=== PATIENT | female | born 1985 | race African-American/Black ===

== ENCOUNTER 2017-10-14 06:39 | Inpatient (IN) ==
[2017-10-14] MEDS ORDERED: MAG-AL + SIM ORAL LIQUID 30ml PO PRN (06:47)
[2017-10-14] MEDS ORDERED: CALCIUM CARBONATE Chewable 500mg TABLET PO PRN (06:47)
[2017-10-14] MEDS ORDERED: LR 1,000 ML IV PRN (06:47)
[2017-10-14] MEDS ORDERED: METHYLERGONOVINE 0.2 MG/ML INJECTION IM PRN (06:47)
[2017-10-14] MEDS ORDERED: LIDOCAINE 1% (10mg/ml) 2mL INJ PF SDV ID PRN (06:47)
[2017-10-14] MEDS ORDERED: ACETAMINOPHEN 500 MG TABLET PO PRN (06:47)
[2017-10-14] MEDS ORDERED: CARBOPROST 250 MCG/ML INJECTION IM PRN (06:47)
[2017-10-14] MEDS ORDERED: D5LR 1,000 ML IV PRN (06:47)
[2017-10-14] MEDS ORDERED: OXYTOCIN DRIP 30 UNIT/500 ML ML IV PRN (07:00)
[2017-10-14 07:09] VITALS: BMI 32.2
--- NOTE | 2017-10-14 08:10 | Anesthesia Preoperative Report ---
Anesthesia Epidural/Spinal Rec - Date and Time Date: 10/14/17 Procedure: Labor Epidural Plan: Epidural - Vital Signs Vital Signs: Temperature 97.7 F 10/14/17 07:12 Pulse Rate 78 10/14/17 07:12 Respiratory Rate 20 10/14/17 07:12 Blood Pressure 106/63 10/14/17 07:12 NPO since: 0000 /Para: P:1 Heart Rate: 130 - Medictaions & Allergies Inpatient Medications: Current Medications Acetaminophen (Tylenol) 500 - 1,000 mg PO Q4H PRN PRN Reason: Pain Al Hydroxide/Mg Hydroxide (Maalox Plus) 30 ml PO Q3H PRN PRN Reason: Indigestion Calcium Carbonate (Tums) 500 - 1,000 mg PO Q2H PRN PRN Reason: Indigestion Carboprost Tromethamine (Hemabate) 250 mcg IM O PRN PRN Reason: .Downtime Dextrose/Lactated Ringer's (Dextrose 5%-Lactated Ringers) 1,000 mls @ 125 mls/ hr IV .Q8H PRN PRN Reason: Labor Lactated Ringer's (Lactated Ringers) 1,000 mls @ 999 mls/hr IV .Q1H1M PRN Oxytocin (Pitocin Drip) 30 unit in 500 mls @ 2 mls/hr IV .Q24H PRN; Protocol PRN Reason: Induction/Augmentation Lidocaine HCl (Xylocaine-Mpf 1% Vial) 0.2 mg ID O PRN PRN Reason: IV Start Methylergonovine Maleate (Methergine) 0.2 mg IM O PRN Misoprostol (Cytotec) 800 mcg MS ONCE PRN Allergies/Adverse Reactions: Allergies Allergy/AdvReac Type Severity Reaction Status Date / Time erythromycin base Allergy Mild VOMITING Unverified 08/09/14 17:13 - Home Medications Home Medications: Home Medications Medication Instructions Recorded Confirmed Type Vit No.130/Iron/Folic 1 tab PO DAILY #0 tab 08/09/14 History [ Tablet] Acyclovir 400 mg TID 09/30/17 09/30/17 History - Medical History Gastrointestional: Reports: Morbid Obesity Other History: Reports: Now - Surgical History Reproductive Surgery/Treatment: DENIES: Section Anesthesia Reactions: None Hx Family Anesthesia Reaction: No History of Motion Sickness: No - Social History Smoking Status: Never smoker Second Hand Exposure: No Substance Use Type: does not use Alcohol Intake Frequency: does not drink - Pertinent Findings Lab Data: CBC and BMP 10/14/17 07:03 - Physical Exam Respiratory Exam: lungs clear, bilateral breath sounds equal Cardiovascular Exam: regular rate and rhythm - Airway Assessment Mallampati Score: II TMD: 3 Fingerbreadths Neck Extension: fair Overall Assessment: no airway concerns - ASA ASA Score: 2 - Discussion Discussion: Discussed risks/options/alternatives of anesthesia and questions answered. Patient consents. Nursing pain assessment noted. Attestation Statement: Prior to the delivery of any anesthetic medication, I examined the patient, developed the plan, obtained the patient's consent and discussed the risk and benefits of the procedure with the patient/guardian.
[2017-10-14] MEDS ORDERED: HYDROCODONE/APAP 5mg/325mg TABLET PO PRN (11:19)
[2017-10-14] MEDS ORDERED: HYDROCORTISONE 2.5% CREAM 30gm RECTALLY PRN (11:19)
[2017-10-14] MEDS ORDERED: DiphenhydrAMINE 25 MG CAPSULE PO PRN (11:19)
[2017-10-14] MEDS ORDERED: OXYTOCIN DRIP 30 UNIT/500 ML ML IV SCH (11:30)
[2017-10-14] MEDS: Oxycodone/Acetaminophen 5/325 1 TAB PO PRN ×2 (11:44→15:57)
[2017-10-14] MEDS: IBUPROFEN 800 MG TABLET PO PRN ×2 (11:44→21:17)
--- NOTE | 2017-10-14 17:45 | Labor and Delivery Note ---
DATE OF DELIVERY 10/14/2017 MISA Valladares is a 32-year-old 2, para 1 at 40 weeks 4 days gestational age who was brought in for Pitocin induction this morning. Her membranes were ruptured artificially, returning clear fluids. She progressed well throughout labor and had a spontaneous vaginal delivery in the YANIRA position of a viable female infant, Apgars 8/9, weight 3495 g, name "Rina." The baby was vigorous at delivery so she was placed on mom's abdomen and the cord clamping was delayed for more than seven minutes. The placenta delivered spontaneously. She had a right periurethral laceration. This was injected with local and repaired with 3-0 chromic. Mom and baby tolerated the delivery well. MTDD
[2017-10-14 23:00] VITALS: RESP 16
[2017-10-15] MEDS: Oxycodone/Acetaminophen 5/325 1 TAB PO PRN ×2 (03:22→12:30)
[2017-10-15 07:53] VITALS: BP 116/72; PULSE 69; TEMP 97.8; O2SAT 98
--- NOTE | 2017-10-15 08:17 | OB/GYN Progress Note ---
OB-PP Progress Note - General PPD1 Maternal Group B Strep: Negative Maternal blood type: O+ Maternal Rubella Status: Immune - Subjective Date: 10/15/17 Lochia: Minimal Pain: controlled Voiding: voiding - Objective Vital Signs: Last Vital Signs Temp 97.8 F 10/15/17 07:00 Pulse 69 10/15/17 07:00 Resp 16 10/15/17 07:00 BP 116/72 10/15/17 07:00 Pulse Ox 98 10/15/17 07:00 General: alert and oriented Abdomen: fundus firm, non-tender Extremities: non-tender - Assessment Assessment: - Plan Plan: routine care, discharge home, continue PNV
[2017-10-15] MEDS ORDERED: DOCUSATE CALCIUM 240 MG CAPSULE PO SCH (09:00)
[2017-10-15] MEDS: IBUPROFEN 800 MG TABLET PO PRN (10:57)
== END 2017-10-15 15:20 | disposition home or self-care (01) | DRG 774 ==
LOC: MC 06:39
PROVIDERS: ADMIT Obstetrics & Gynecology; ATTEND Obstetrics & Gynecology